=== PATIENT | male | born 2000 | race Caucasian/White ===

== ENCOUNTER 2022-03-15 15:00 | Emergency (ER) | payer SELFPAY ==
[2022-03-15 15:22] LABS: Urine Blood Negative (Negative); Urine Glucose Negative (Negative); Urine Protein Negative (Negative); Urine pH 7.5 (5.0-7.0)
[2022-03-15 15:44] LABS: Absolute Lymphocytes (CBC) 0.5 K/uL (0.7-4.9); Hematocrit 41.3 % (39.6-49.0); Lymphocytes % 8.1 % (15.3-44.8); MCV 82.1 fL (80-100); MPV 8.3 fL (7.6-11.3); RBC Red Blood Cell Count 5.03 M/uL (4.33-5.43)
--- NOTE | 2022-03-15 15:57 | RAD REPORT ---
EXAM DESCRIPTION: CTAbdomen Pelvis W Contrast - 03/15/2022 3:46 pm CLINICAL HISTORY: Abdominal pain. N/V COMPARISON: No comparisons TECHNIQUE: Biphasic CT imaging of the abdomen and pelvis was performed with 100 ml non-ionic IV cont rast. All CT scans are performed using dose optimization technique as appropriate and may include automated exposure control or mA/KV adjustment according to patient size. FINDINGS: The lung bases are clear. The liver, spleen, pancreas, adrenal glands and kidneys are within normal limits. No bowel obstruction, free air, free fluid or abscess. Several appendicolith are present normal size d appendix. No evidence of significant lymphadenopathy. No suspicious bony findings. IMPRESSION: No acute intra-abdominal or pelvic finding. Several appendicolith are present in a normal sized appendix.
[2022-03-15 16:03] LABS: Albumin 4.4 g/dL (3.4-5.0); Bilirubin Total 0.4 mg/dL (0.2-1.0); Potassium 3.5 mmol/L (3.5-5.1); Protein, Total 8.2 g/dL (6.4-8.2)
[2022-03-15] MEDS ORDERED: FAMOTIDINE 20 MG/2 ML VIAL IV ONE (16:18)
[2022-03-15] MEDS ORDERED: ONDANSETRON 4 MG/2 ML VIAL ONE (16:18)
[2022-03-15] MEDS ORDERED: NA CHLORIDE 0.9% 1,000 ML ONE ×2 (16:18→17:42)
[2022-03-15] MEDS ORDERED: MORPHINE 2 MG/ML SYR ONE (16:18)
[2022-03-15 16:47] LABS: SARS-COV-2 RT PCR POSITIVE (NEGATIVE)
[2022-03-15] MEDS ORDERED: KETOROLAC 30 MG/ML INJ ONE (17:42)
--- NOTE | 2022-03-15 18:08 | EDPHYS ---
Physician Documentation [facility] Name: Trey Christian Age: 21 yrs Sex: Male : 2000 Arrival Date: 03/15/2022 Time: 15:03 Bed 19 Private MD: ED Physician Morteza Marino HPI: 03/15 15:20 This 21 yrs old Male presents to ER via Ambulatory with complaints of Abdominal Pain, cp Flank Pain, Vomiting. 15:20 The patient presents with abdominal pain. Associated signs and symptoms: Pertinent cp positives: nausea and vomiting. 15:20 Onset: The symptoms/episode began/occurred this morning. cp 15:20 The symptoms do not radiate. Severity of pain: in the emergency department the pain is cp unchanged despite home interventions. Historical: - Allergies: 15:09 No Known Drug Allergies; ll1 - PMHx: 15:09 None; ll1 - PSHx: 15:09 None; ll1 - Immunization history:: Client reports having NOT received the Covid vaccine. - Social history:: Smoking status: Patient reports the use of cigarette tobacco products, smokes one-half pack cigarettes per day. ROS: 15:25 Constitutional: Positive for poor PO intake, Negative for body aches, chills, fever. cp 15:25 Eyes: Negative for injury, pain, redness, and discharge. cp 15:25 ENT: Negative for drainage from ear(s), ear pain, sore throat, difficulty swallowing, difficulty handling secretions. 15:25 Cardiovascular: Negative for chest pain, palpitations. 15:25 Respiratory: Negative for cough, shortness of breath, wheezing. 15:25 Abdomen/GI: Positive for abdominal pain, nausea and vomiting, anorexia, Negative for diarrhea, constipation, hematemesis. 15:25 Back: Positive for flank pain, low back pain, Negative for injury or acute deformity, decreased range of motion. 15:25 : Negative for urinary symptoms, testicular pain 15:25 Neuro: Negative for altered mental status, dizziness, headache, syncope, weakness. 15:25 All other systems are negative. Exam: 15:30 Constitutional: The patient appears in no acute distress, alert, awake, non-toxic, well cp developed, well nourished, uncomfortable. 15:30 Head/Face: Normocephalic, atraumatic. cp 15:30 Eyes: Periorbital structures: appear normal, Conjunctiva: normal, Sclera: no appreciated abnormality, Lids and lashes: appear normal, bilaterally. 15:30 ENT: External ear(s): are unremarkable, Nose: is normal, Mouth: Lips: moist, Oral mucosa: pink and intact, moist, Posterior pharynx: Airway: no evidence of obstruction, patent, Tonsils: no enlargement, no erythema, no exudate, erythema, is not appreciated, exudate, is not appreciated. 15:30 Neck: ROM/movement: is normal, is supple, without pain, no range of motions limitations. 15:30 Chest/axilla: Inspection: normal. 15:30 Cardiovascular: Rate: tachycardic, Rhythm: regular, Edema: is not appreciated. 15:30 Respiratory: the patient does not display signs of respiratory distress, Respirations: normal, no use of accessory muscles, no retractions, labored breathing, is not present, Breath sounds: are clear throughout, no decreased breath sounds, no stridor, no wheezing. 15:30 Abdomen/GI: Inspection: abdomen appears normal, Bowel sounds: active, all quadrants, Palpation: soft, in all quadrants, moderate abdominal tenderness, in all quadrants, rebound tenderness, is not appreciated, involuntary guarding, is not appreciated. 15:30 Back: pain, that is moderate, of the lumbar area, right mid back and right low back, ROM is normal. 15:30 Skin: cellulitis, is not appreciated, no rash present. 15:30 Neuro: Orientation: to person, place \T\ time. Mentation: is normal, Motor: moves all fours, strength is normal, Sensation: is normal. Vital Signs: 15:09 BP 137 / 69; Pulse 114; Resp 18; Temp 97.0; Pulse Ox 95% on R/A; Height 5 ft. 8 in. ll1 (172.72 cm); Pain 7/10; 15:30 BP 125 / 75; Pulse 117; Resp 20; Pulse Ox 96% on R/A; Pain 10/10; db 16:22 BP 111 / 70; Pulse 123; Resp 20; Temp 99.5(O); Pulse Ox 97% on R/A; db 16:54 Pain 5/10; db 18:12 BP 113 / 73; Pulse 85; Resp 18; Temp 98; Pulse Ox 98% on R/A; Pain 5/10; db 18:18 BP 113 / 73; Pulse 105; Resp 18; Pulse Ox 99% on R/A; db MDM: 15:15 Patient medically screened. 18:05 Data reviewed: vital signs, nurses notes, lab test result(s), radiologic studies, CT cp scan. 18:05 Counseling: I had a detailed discussion with the patient and/or guardian regarding: the cp historical points, exam findings, and any diagnostic results supporting the discharge/admit diagnosis, lab results, radiology results, to return to the emergency department if symptoms worsen or persist or if there are any questions or concerns that arise at home. Response to treatment: the patient's symptoms have markedly improved after treatment, patient is well hydrated. ED course: VSS. Nausea and pain markedly improved, vomiting resolved. Will discharge to home for continued monitoring. 03/15 15:19 Order name: CBC with Diff; Complete Time: 16:01 1 03/15 16:02 Interpretation: Normal except: CHRIST% 79.8; LYM% 8.1; LYMA 0.5. 03/15 15:19 Order name: CMP; Complete Time: 16:25 [facility] 03/15 16:26 Interpretation: Normal except: GLUC 119; GLOB 3.8. 03/15 15:19 Order name: Lipase; Complete Time: 16:25 [facility] 03/15 15:19 Order name: COVID-19/FLU A+B; Complete Time: 16:52 [facility] 03/15 16:52 Interpretation: Normal except: SARSCOV2 RT PCR POSITIVE. 03/15 15:22 Order name: Urine Dipstick-Ancillary; Complete Time: 15:23 [facility] 03/15 15:23 Interpretation: Normal except: UPH 7.5. 03/15 15:23 Order name: Magnesium 03/15 15:23 Order name: CT Abd/Pelvis - IV Contrast Only; Complete Time: 16:01 03/15 16:02 Interpretation: Report reviewed. 03/15 15:19 Order name: IV Saline Lock; Complete Time: 15:19 1 03/15 15:19 Order name: Labs collected and sent; Complete Time: 15:19 1 03/15 15:19 Order name: Urine Dipstick-Ancillary (obtain specimen); Complete Time: 15:19 ll1 03/15 16:26 Order name: PO challenge; Complete Time: 18:09 cp Administered Medications: 16:20 Drug: morphine 2 mg Route: IVP; Infused Over: 4 mins; Site: left antecubital; db 18:17 Follow up: Response: No adverse reaction db 16:25 Drug: Zofran (Ondansetron) 4 mg Route: IVP; Site: left antecubital; db 18:17 Follow up: Response: No adverse reaction db 16:25 Drug: Pepcid (famotidine) 20 mg Route: IVP; Site: left antecubital; db 18:17 Follow up: Response: No adverse reaction db 16:25 Drug: NS 0.9% 1000 ml Route: IV; Rate: 1 bolus; Site: left antecubital; db 17:30 Follow up: Response: No adverse reaction; IV Status: Completed infusion; IV Intake: db 1000ml 16:30 Drug: morphine 2 mg Route: IVP; Infused Over: 4 mins; Site: left antecubital; db 18:17 Follow up: Response: No adverse reaction db 17:30 Drug: NS 0.9% 1000 ml Route: IV; Rate: 1 bolus; Site: left antecubital; db 18:34 Follow up: Response: No adverse reaction; IV Status: Completed infusion; IV Intake: db 1000ml 17:30 Drug: Ketorolac 30 mg Route: IVP; Site: left antecubital; db 18:16 Follow up: Response: No adverse reaction; Pain is decreased db Disposition: 16:49 Co-signature as Attending Physician, Morteza COLEMAN was immediately available on-site ms3 in the Emergency Department for consultation in the care of the patient. Disposition Summary: 03/15/22 18:07 Discharge Ordered Location: Home cp Problem: new cp Symptoms: have improved cp Condition: Stable cp Diagnosis - Nausea with vomiting, unspecified cp - SARS-associated coronavirus as the cause of diseases classified elsewhere cp - Low back pain cp - Abdominal pain, unspecified cp Followup: cp - With: Private Physician - When: 2 - 3 days - Reason: Worsening of condition Discharge Instructions: - Discharge Summary Sheet cp - Abdominal Pain, Adult cp - Acute Back Pain, Adult cp - Nausea and Vomiting, Adult cp - COVID-19 cp - Things to Know about the COVID-19 Pandemic - [facility] cp - 10 Things You Can Do to Manage Your COVID-19 Symptoms at Home - [facility] cp - COVID-19: Quarantine vs. Isolation - [facility] cp - Prevent the Spread of COVID-19 if You Are Sick - [facility] cp Forms: - Medication Reconciliation Form cp - Thank You Letter cp - Antibiotic Education cp - Prescription Opioid Use cp Prescriptions: - Zofran 4 mg Oral Tablet - take 1 tablet by ORAL route every 12 hours As needed; 20 tablet; Refills: 0, cp Product Selection Permitted - Diclofenac Sodium 75 mg Oral Tablet Sustained Release - take 1 tablet by ORAL route 2 times per day; 30 tablet; Refills: 0, Product cp Selection Permitted Signatures: Dispatcher [employer] EDMS Fabian Bliss PA PA cp John Fierro RN RN ll1 Morteza Marino DO DO ms3 Karie Norris RN RN db Corrections: (The following items were deleted from the chart) 15:09 15:09 Social history: Smoking status: Patient denies any tobacco usage or history of. ll1 ll1 16:26 16:26 Normal except: GLUC 119. cp cp
--- NOTE | 2022-03-15 18:08 | ER ---
Nurse's Notes [facility] Name: Trey Christian Age: 21 yrs Sex: Male : 2000 Arrival Date: 03/15/2022 Time: 15:03 Bed 19 Private MD: Diagnosis: Nausea with vomiting, unspecified;SARS-associated coronavirus as the cause of diseases classified elsewhere;Low back pain;Abdominal pain, unspecified Presentation: 03/15 15:09 Chief complaint: Patient states: R flank and R lower back pain for 1 days. + N/V and ll1 pale. Coronavirus screen: Vaccine status: Patient reports being unvaccinated. Client denies travel out of the [place] in the last 14 days. At this time, the client does not indicate any symptoms associated with coronavirus-19. Ebola Screen: Patient denies travel to an Ebola-affected area in the 21 days before illness onset. Initial Sepsis Screen: Does the patient meet any 2 criteria? HR > 90 bpm. No. Patient's initial sepsis screen is negative. Does the patient have a suspected source of infection? Yes: Acute abdominal pain. Risk Assessment: Do you want to hurt yourself or someone else? Patient reports no desire to harm self or others. Onset of symptoms was March 15, 2022. 15:09 Method Of Arrival: Ambulatory ll1 15:09 Acuity: AMOR 3 ll1 Triage Assessment: 15:12 General: Appears uncomfortable, Behavior is calm, cooperative, appropriate for age. ll1 Pain: Complains of pain in back Quality of pain is described as aching. Neuro: No deficits noted. Cardiovascular: No deficits noted. Respiratory: No deficits noted. GI: Reports nausea, vomiting. Historical: - Allergies: 15:09 No Known Drug Allergies; ll1 - PMHx: 15:09 None; ll1 - PSHx: 15:09 None; ll1 - Immunization history:: Client reports having NOT received the Covid vaccine. - Social history:: Smoking status: Patient reports the use of cigarette tobacco products, smokes one-half pack cigarettes per day. Screenin:22 [facility] ED Fall Risk Assessment (Adult) History of falling in the last 3 months, db including since admission No falls in past 3 months (0 pts) Confusion or Disorientation No (0 pts) Intoxicated or Sedated No (0 pts) Impaired Gait No (0 pts) Mobility Assist Device Used No (0 pt) Altered Elimination No (0 pt) Score/Fall Risk Level 0 - 2 = Low Risk Oriented to surroundings, Maintained a safe environment. Abuse screen: Denies threats or abuse. Denies injuries from another. Nutritional screening: No deficits noted. Tuberculosis screening: No symptoms or risk factors identified. Assessment: 16:42 Reassessment: Patient appears in no apparent distress at this time. Reassessment: db Patient appears in no apparent distress at this time. Patient and/or family updated on plan of care and expected duration. Pain level reassessed. Patient is alert, oriented x 3, equal unlabored respirations, skin warm/dry/pink. right flank pain feels like kidney stone pain. with nausea. General: Appears distressed, uncomfortable, Behavior is calm, cooperative, appropriate for age. Pain: Complains of pain in right flank pain. Neuro: No deficits noted. Level of Consciousness is awake, alert, obeys commands. Cardiovascular: No deficits noted. Respiratory: No deficits noted. Airway Respiratory effort is even, unlabored, Respiratory pattern is regular, symmetrical. GI: No deficits noted. No signs and/or symptoms were reported involving the gastrointestinal system. Bowel sounds present X 4 quads. Abd is soft and non tender. : No deficits noted. No signs and/or symptoms were reported regarding the genitourinary system. EENT: No deficits noted. 16:54 Reassessment: Patient appears in no apparent distress at this time. Patient and/or db family updated on plan of care and expected duration. Pain level reassessed. Patient is alert, oriented x 3, equal unlabored respirations, skin warm/dry/pink. Patient states feeling better. Patient states symptoms have improved. 17:30 Reassessment: Patient appears in no apparent distress at this time. No changes from db previously documented assessment. Patient and/or family updated on plan of care and expected duration. Pain level reassessed. Patient is alert, oriented x 3, equal unlabored respirations, skin warm/dry/pink. PATIENT PROVIDED WATER AND GATORADE FOR PO CHALLENGE. 18:33 Reassessment: Patient appears in no apparent distress at this time. No changes from db previously documented assessment. Patient and/or family updated on plan of care and expected duration. Pain level reassessed. Patient is alert, oriented x 3, equal unlabored respirations, skin warm/dry/pink. STATES IS FEELING BETTER. TOLERATED PO CHALLENGE Patient states feeling better. Patient states symptoms have improved. Vital Signs: 15:09 BP 137 / 69; Pulse 114; Resp 18; Temp 97.0; Pulse Ox 95% on R/A; Height 5 ft. 8 in. ll1 (172.72 cm); Pain 7/10; 15:30 BP 125 / 75; Pulse 117; Resp 20; Pulse Ox 96% on R/A; Pain 10/10; db 16:22 BP 111 / 70; Pulse 123; Resp 20; Temp 99.5(O); Pulse Ox 97% on R/A; db 16:54 Pain 5/10; db 18:12 BP 113 / 73; Pulse 85; Resp 18; Temp 98; Pulse Ox 98% on R/A; Pain 5/10; db 18:18 BP 113 / 73; Pulse 105; Resp 18; Pulse Ox 99% on R/A; db Vitals: 18:18 Cardiac Rhythm Assessment Regular Sinus tach. db ED Course: 15:03 Patient arrived in ED. rg4 15:09 Fabian Bliss PA is PHCP. cp 15:09 Morteza Marino DO is Attending Physician. cp 15:12 Triage completed. ll1 15:12 Arm band placed on Patient placed in an exam room, on a stretcher. ll1 15:29 COVID-19/FLU A+B Sent. kj1 15:30 Inserted saline lock: 20 gauge in left antecubital area, using aseptic technique. Blood db collected. 15:48 CT Abd/Pelvis - IV Contrast Only In Process Unspecified. EDMS 16:09 Karie Norris, RN is Primary Nurse. db 16:22 Patient has correct armband on for positive identification. Bed in low position. Call db light in reach. Side rails up X 1. Client placed on continuous cardiac and pulse oximetry monitoring. NIBP monitoring applied. 16:22 No provider procedures requiring assistance completed. db 16:55 Magnesium Sent. bc6 18:33 IV discontinued, intact, bleeding controlled, No redness/swelling at site. db Administered Medications: 16:20 Drug: morphine 2 mg Route: IVP; Infused Over: 4 mins; Site: left antecubital; db 18:17 Follow up: Response: No adverse reaction db 16:25 Drug: Zofran (Ondansetron) 4 mg Route: IVP; Site: left antecubital; db 18:17 Follow up: Response: No adverse reaction db 16:25 Drug: Pepcid (famotidine) 20 mg Route: IVP; Site: left antecubital; db 18:17 Follow up: Response: No adverse reaction db 16:25 Drug: NS 0.9% 1000 ml Route: IV; Rate: 1 bolus; Site: left antecubital; db 17:30 Follow up: Response: No adverse reaction; IV Status: Completed infusion; IV Intake: db 1000ml 16:30 Drug: morphine 2 mg Route: IVP; Infused Over: 4 mins; Site: left antecubital; db 18:17 Follow up: Response: No adverse reaction db 17:30 Drug: NS 0.9% 1000 ml Route: IV; Rate: 1 bolus; Site: left antecubital; db 18:34 Follow up: Response: No adverse reaction; IV Status: Completed infusion; IV Intake: db 1000ml 17:30 Drug: Ketorolac 30 mg Route: IVP; Site: left antecubital; db 18:16 Follow up: Response: No adverse reaction; Pain is decreased db Medication: 16:22 VIS not applicable for this client. db Intake: 17:30 IV: 1000ml; Total: 1000ml. db 18:34 IV: 1000ml; Total: 2000ml. db Outcome: 18:07 Discharge ordered by MD. cp 18:33 Discharged to home ambulatory, with family. db 18:33 Condition: stable 18:33 Discharge instructions given to patient, Instructed on discharge instructions, Demonstrated understanding of instructions, Prescriptions given X 2. 18:34 Patient left the ED. db Signatures: Dispatcher [employer] EDMS Fabian Bliss PA PA cp Garcia, Rubi rg4 Maria T Villarreal kj1 John Fierro RN RN ll1 Karie Norris RN RN db Marita Calderón bc6 Corrections: (The following items were deleted from the chart) 15:09 15:09 Social history: Smoking status: Patient denies any tobacco usage or history of. ll1 ll1 15:12 15:09 Pulse 114bpm; Resp 18bpm; Pulse Ox 95% RA; Temp 97.0F; Pain 7/10; ll1 ll1
[2022-03-15 19:18] VITALS: BP 113/73; TEMP 98
[2022-03-15 19:20] VITALS: O2SAT 99
== END 2022-03-15 18:34 | disposition home or self-care (01) ==
LOC: ER 15:00
DX: U07.1 COVID-19 (principal); M54.50 Low back pain, unspecified; R10.9 Unspecified abdominal pain
CPT/HCPCS: 0240U; 36415; 74177; 80053; 81003; 83690; 83735; 85025; 96361; 96374; 96375; 99284; J2270; J2405; J7030; Q9967

== ENCOUNTER 2022-05-22 10:25 | Emergency (ER) | payer SELFPAY ==
[2022-05-22 10:52] LABS: Urine Blood Trace-intact (Negative); Urine Glucose Negative (Negative); Urine Protein Negative (Negative); Urine Specific Gravity <=1.005 (1.005-1.030); Urine pH 5.5 (5.0-7.0)
[2022-05-22] MEDS ORDERED: KETOROLAC 30 MG/ML INJ ONE (10:57)
[2022-05-22 11:01] LABS: Urine Bacteria <20 /HPF (<20); Urine RBC <5 /HPF (None Seen); Urine WBC Clump Rare /HPF (None Seen)
--- NOTE | 2022-05-22 11:12 | ER ---
Nurse's Notes [facility] Name: Trey Christian Age: 22 yrs Sex: Male : 2000 Arrival Date: 05/22/2022 Time: 10:31 Bed 12 Private MD: Diagnosis: UTI/ Urinary tract infection, site not specified Presentation: 05/22 10:37 Chief complaint: Chief complaint: Penile pain and pain with urination x 3 days. hb Coronavirus screen: At this time, the client does not indicate any symptoms associated with coronavirus-19. Ebola Screen: No symptoms or risks identified at this time. Initial Sepsis Screen: Does the patient meet any 2 criteria? No. Patient's initial sepsis screen is negative. Does the patient have a suspected source of infection? No. Patient's initial sepsis screen is negative. Risk Assessment: Do you want to hurt yourself or someone else? Patient reports no desire to harm self or others. Onset of symptoms was May 20, 2022. 10:37 Method Of Arrival: Ambulatory hb 10:38 Acuity: AMOR 4 hb Historical: - Allergies: 10:38 No Known Allergies; hb - Immunization history:: Adult Immunizations up to date. - Social history:: Smoking status: Patient denies any tobacco usage or history of. Screenin:59 [facility] ED Fall Risk Assessment (Adult) History of falling in the last 3 months, ss including since admission No falls in past 3 months (0 pts). Abuse screen: Denies threats or abuse. Denies injuries from another. Nutritional screening: No deficits noted. Tuberculosis screening: Never had TB. Assessment: 10:59 General: Appears in no apparent distress. comfortable, Behavior is calm, cooperative. ss Neuro: Level of Consciousness is awake, alert, obeys commands. Respiratory: Airway is patent Respiratory effort is even, unlabored, Respiratory pattern is regular, symmetrical. : Reports burning with urination, x 3 days. Derm: Skin is intact, is healthy with good turgor, Skin is Skin is pink, warm \T\ dry. normal. Musculoskeletal: Circulation, motion, and sensation intact. Range of motion: intact in all extremities, Swelling absent. Vital Signs: 10:37 BP 153 / 89; Pulse 103; Resp 16; Temp 98.2; Pulse Ox 97% on R/A; Weight 81.65 kg; hb Height 5 ft. 7 in. ; 10:37 Body Mass Index 28.19 (81.65 kg, 170.18 cm) ED Course: 10:31 Patient arrived in ED. am2 10:32 Refugio Mata MD is Attending Physician. bs3 10:37 Arm band placed on right wrist. hb 10:39 Triage completed. hb 10:51 Bernie Conde, RN is Primary Nurse. ss 10:51 GC (Nuno/Chl) Probe URINE Sent. ss 10:51 Urine Microscopic Only Sent. ss 10:59 Patient has correct armband on for positive identification. ss Administered Medications: 10:57 Drug: Ketorolac IM 30 mg Route: IM; Site: right deltoid; ss Medication: 10:59 VIS not applicable for this client. Outcome: 11:12 Discharge ordered by . bs3 Signatures: Bernie Conde, ERINN RN Margie Grande RN RN [facility] Viky am2 Refugio Mata MD MD bs3 Corrections: (The following items were deleted from the chart) 10:46 10:37 BP 153 / 89; Pulse 103bpm; Resp 16bpm; Pulse Ox 97% RA; Temp 98.2F; hb hb
--- NOTE | 2022-05-22 11:12 | EDPHYS ---
Physician Documentation [facility] Name: Trey Christian Age: 22 yrs Sex: Male : 2000 Arrival Date: 05/22/2022 Time: 10:31 Bed 12 Private MD: ED Physician Refugio Mata HPI: 05/22 10:46 This 22 yrs old Male presents to ER via Ambulatory with complaints of Penile bs3 Pain, Pain With Urination. 10:46 No significant past medical history he notes that his pain started 3 days ago he has bs3 increased urinary frequency and pain with urination he denies fevers or chills any back pain. He denies any sexual activity but notes that he was almost sexually active last week he denies any discharge she denies any lesions on his penis he denies any testicular pain or anything else bothering him this is never happened before. Historical: - Allergies: 10:38 No Known Allergies; hb - Immunization history:: Adult Immunizations up to date. - Social history:: Smoking status: Patient denies any tobacco usage or history of. ROS: 10:46 Constitutional: Negative for fever, chills bs3 10:46 All other systems are negative. Exam: 10:46 Constitutional: This is a well developed, well nourished patient who is awake, alert, bs3 and in no acute distress. Head/Face: Normocephalic, atraumatic. ENT: mmm, no posterior phyarngeal erythema Chest/axilla: Normal chest wall appearance and motion. Nontender with no deformity. No lesions are appreciated. Cardiovascular: Regular rate and rhythm with a normal S1 and S2. symmetric pulses in upper extremities Respiratory: Lungs have equal breath sounds bilaterally, clear to auscultation, no respiratory distress Abdomen/GI: Soft, non-tender, no rebound or guarding Male : Normal genitalia with no discharge or lesions., pt points to the ventral aspect of the penis for where his pain is Skin: Warm, dry with normal turgor. Normal color with no rashes, no lesions, and no evidence of cellulitis. MS/ Extremity: Pulses equal, no cyanosis. Neurovascular intact. Full, normal range of motion. Neuro: Awake and alert, GCS 15, oriented to person, place, time, and situation. Cranial nerves II-XII grossly intact. Motor strength 5/5 in all extremities. Sensory grossly intact. Vital Signs: 10:37 BP 153 / 89; Pulse 103; Resp 16; Temp 98.2; Pulse Ox 97% on R/A; Weight 81.65 kg; hb Height 5 ft. 7 in. ; 10:37 Body Mass Index 28.19 (81.65 kg, 170.18 cm) hb MDM: 10:32 Patient medically screened. bs3 10:46 Differential diagnosis: Possible UTI possible STI although patient denies risk factors bs3 his spot urine showed 2+ leuk esterase will treat for UTI he has increased urinary frequency will treat for possible ureteral spasm return precautions given. Data reviewed: vital signs, nurses notes. 11:11 ED course: UA consistent with UTI patient advised to follow-up with regarding his blood bs3 pressure patient denies any possible sexually transmitted infection discussed treatment for this which he did not want. 05/22 10:33 Order name: Urine Dipstick-Ancillary (obtain specimen); Complete Time: 10:51 bs3 05/22 10:42 Order name: Urine Microscopic Only; Complete Time: 11:09 bs3 05/22 10:45 Order name: GC (Nuno/Chl) Probe URINE EDMS 05/22 10:52 Order name: Urine Dipstick-Ancillary; Complete Time: 11:09 EDMS 05/22 11:06 Order name: Urine Culture EDMS Administered Medications: 10:57 Drug: Ketorolac IM 30 mg Route: IM; Site: right deltoid; Disposition Summary: 05/22/22 11:12 Discharge Ordered Location: Home bs3 Problem: new bs3 Symptoms: have improved bs3 Condition: Stable bs3 Diagnosis - UTI/ Urinary tract infection, site not specified bs3 Followup: bs3 - With: Private Physician - When: 5 - 6 days - Reason: Re-evaluation by your physician Forms: - Medication Reconciliation Form bs3 - Thank You Letter bs3 - Antibiotic Education bs3 - Prescription Opioid Use bs3 Signatures: Dispatcher [employer] EDMS Bernie Conde RN RN Margie Grande RN RN Refugio Mata MD MD bs3 Corrections: (The following items were deleted from the chart) 10:46 10:34 GC (Gonorr/Clamydia) Probe+R.LAB.BRZ ordered. EDMS EDMS
[2022-05-22 11:39] VITALS: BP 153/89; TEMP 98.2; O2SAT 97
== END 2022-05-22 11:18 | disposition home or self-care (01) ==
LOC: ER 10:25
DX: N39.0 Urinary tract infection, site not specified (principal)
CPT/HCPCS: 81003; 81015; 87086; 87088; 87490; 87590; 96372; 99283

== ENCOUNTER 2022-06-04 11:42 | Observation (INO) | payer SELFPAY ==
[2022-06-04 12:44] LABS: Absolute Lymphocytes (CBC) 1.8 K/uL (0.7-4.9); Hematocrit 36.9 % (39.6-49.0); Lymphocytes % 14.9 % (15.3-44.8); MCV 80.7 fL (80-100); MPV 7.5 fL (7.6-11.3); RBC Red Blood Cell Count 4.57 M/uL (4.33-5.43)
[2022-06-04 12:50] LABS: Albumin 3.7 g/dL (3.4-5.0); Bilirubin Total 0.5 mg/dL (0.2-1.0); Potassium 3.7 mEq/L (3.5-5.1); Protein, Total 8.9 g/dL (6.4-8.2)
[2022-06-04] MEDS ORDERED: NA CHLORIDE 0.9% 1,000 ML ONE (12:50)
[2022-06-04] MEDS ORDERED: ONDANSETRON 4 MG/2 ML VIAL ONE ×2 (12:50→15:41)
[2022-06-04] MEDS ORDERED: MORPHINE 4 MG/ML SYR ONE ×2 (12:50→15:41)
--- NOTE | 2022-06-04 14:05 | RAD REPORT ---
EXAM DESCRIPTION: CTAbdomen Pelvis W Contrast - 06/04/2022 1:47 pm CLINICAL HISTORY: ABD PAIN COMPARISON: Abdomen Pelvis W Contrast dated 03/15/2022 TECHNIQUE: CT of the abdomen and pelvis was performed. All CT scans are performed using dose optimization technique as appropriate and may include automated exposure control or mA/KV adjustment according to patient size. FINDINGS: Lower chest: 10 mm subpleural nodule at the right hemidiaphragm is almost certainly benign in a patient in this age group. There is a second smaller nodule more peripheral, also likely benign . These may represent subpleural lymph nodes . Liver: No acute abnormality or suspicious lesions. Biliary: No biliary ductal dilatation. Stomach: No significant focal abnormality. Duodenum: No significant focal abnormality. Pancreas: No significant abnormality. Spleen: No significant abnormality. Adrenal: No suspicious lesions. Kidney/ureter: No hydronephrosis. No renal calculi. Retroperitoneum: No retroperitoneal adenopathy. Vascular: No aneurysm. Bowel: No significant focal abnormality. Peritoneum: Retrocecal acute appendicitis without perforation. No bowel obstruction. Bladder: Grossly unremarkable. Reproductive: No adnexal masses. Bones: No acute fracture. Other: n/a IMPRESSION: Nonperforated acute appendicitis. No abscess.
[2022-06-04] MEDS ORDERED: ONDANSETRON 4 MG/2 ML VIAL IV PRN ×2 (14:59→18:22)
[2022-06-04] MEDS ORDERED: MORPHINE 4 MG/ML SYR IV PRN (14:59)
--- NOTE | 2022-06-04 15:03 | ER ---
Nurse's Notes [facility] Name: Trey Christian Age: 22 yrs Sex: Male : 2000 Arrival Date: 06/04/2022 Time: 11:45 Bed 9 Private MD: Diagnosis: Unspecified acute appendicitis;Leukocytosis;Lower abdominal pain, unspecified Presentation: 06/04 12:05 Chief complaint: Patient states: RLQ pain x 1 week ago. Pt appears uncomfortable and aa5 pale during triage. 12:05 Coronavirus screen: At this time, the client does not indicate any symptoms associated aa5 with coronavirus-19. Ebola Screen: Patient denies travel to an Ebola-affected area in the 21 days before illness onset. Initial Sepsis Screen: Does the patient meet any 2 criteria? HR > 90 bpm. Does the patient have a suspected source of infection? No. Patient's initial sepsis screen is negative. Risk Assessment: Do you want to hurt yourself or someone else? Patient reports no desire to harm self or others. Onset of symptoms was May 2022. 12:05 Acuity: AMOR 2 aa5 12:05 Method Of Arrival: Ambulatory aa5 Historical: - Allergies: 12:16 No Known Allergies; aa5 - PMHx: 12:16 Kidney stone; aa5 - Immunization history:: Adult Immunizations unknown. - Social history:: Smoking status: Patient denies any tobacco usage or history of. Assessment: 15:30 Reassessment: Patient is alert, oriented x 3, equal unlabored respirations, skin aa5 warm/dry/pink. Pt vomited once, MD was notified. . 15:40 Reassessment: Patient is alert, oriented x 3, equal unlabored respirations, skin aa5 warm/dry/pink. Vital Signs: 12:05 BP 112 / 81; Pulse 101; Resp 20 S; Temp 97.7(O); Pulse Ox 99% on R/A; aa5 13:00 BP 132 / 84; Pulse 92; Resp 18; Pulse Ox 95% on R/A; Pain 7/10; aa5 14:00 BP 130 / 90; Pulse 83; Resp 18; Pulse Ox 95% on R/A; eh3 15:30 BP 128 / 91; Pulse 95; Resp 16 S; Pulse Ox 100% on R/A; aa5 13:00 Pain Scale: Adult aa5 ED Course: 11:45 Patient arrived in ED. rg4 11:49 Morteza Marino DO is Attending Physician. ms3 12:05 Arm band placed on. aa5 12:16 Triage completed. aa5 12:23 Initial lab(s) drawn, by me, sent to lab. Inserted saline lock: 20 gauge in right em1 antecubital area, using aseptic technique. Blood collected. 13:00 Elsie Boyd, ERINN is Primary Nurse. aa5 13:49 CT Abd/Pelvis - IV Contrast Only In Process Unspecified. EDMS 15:01 Ru Jordan MD is Hospitalizing Provider. ms3 15:52 No provider procedures requiring assistance completed. Patient admitted, IV remains in aa5 place. Administered Medications: 12:40 Drug: NS 0.9% IV 1000 ml Route: IV; Rate: 1 bolus; Site: right antecubital; aa5 15:40 Follow up: IV Status: Completed infusion; IV Intake: 1000ml aa5 12:40 Drug: Ondansetron IVP 4 mg Route: IVP; Site: right antecubital; aa5 13:30 Follow up: Response: No adverse reaction mb9 12:40 Drug: morphine IVP or IV 4 mg Route: IVP; Infused Over: 4 mins; Site: right antecubital;aa5 13:30 Follow up: Response: Pain is decreased mb9 15:33 CANCELLED (Duplicate Order): Ondansetron IVP 4 mg IVP once; over 2 minutes aa5 15:40 Drug: morphine IVP or IV 4 mg Route: IVP; Infused Over: 4 mins; Site: right antecubital;aa5 15:50 Follow up: Response: No adverse reaction aa5 15:40 Drug: Ondansetron IVP 4 mg Route: IVP; Site: right antecubital; aa5 15:50 Follow up: Response: No adverse reaction aa5 15:42 Drug: Piperacillin-Tazobactam IVPB 3.375 grams Route: IVPB; Infused Over: 60 mins; aa5 Site: right antecubital; 15:51 Follow up: Response: No adverse reaction aa5 15:51 Follow up: IV Status: Infusion continued upon admission aa5 Medication: 15:52 VIS not applicable for this client. aa5 Intake: 15:40 IV: 1000ml; Total: 1000ml. aa5 Outcome: 15:02 Decision to Hospitalize by Provider. ms3 15:52 Admitted to OR accompanied by nurse, via wheelchair, with chart, Report called to aaAurelia Kirkpatrick RN 15:52 Condition: stable 15:52 Instructed on the need for admit, Demonstrated understanding of instructions. 15:52 Patient left the ED. aa5 Signatures: Dispatcher [employer] EDMS German Carpio em1 Elsie Boyd, RN RN aa5 Bev Barton 4 Morteza Marino, DO DO ms3 Radha Ernst, RN RN eh3 Kavita, Kristine Seo, RN RN mb9 Corrections: (The following items were deleted from the chart) 12:57 12:29 Elsie Boyd, RN is Primary Nurse. aa5 aa5
--- NOTE | 2022-06-04 15:03 | EDPHYS ---
Physician Documentation [facility] Name: Trey Christian Age: 22 yrs Sex: Male : 2000 Arrival Date: 06/04/2022 Time: 11:45 Bed 9 Private MD: ED Physician Morteza Marino HPI: 06/04 15:02 This 22 yrs old Male presents to ER via Ambulatory with complaints of Abdominal Pain, ms3 Flank Pain. 15:02 22-year-old male with past medical history of kidney stones presents for right lower ms3 quadrant abdominal pain that began 1 week prior to arrival. Patient states the pain is 10/10 described as stabbing. Patient denies alleviating or inciting factors. Patient states he has not had pain like this in past. Patient states he developed nausea and vomiting this morning. Historical: - Allergies: 12:16 No Known Allergies; aa5 - PMHx: 12:16 Kidney stone; aa5 - Immunization history:: Adult Immunizations unknown. - Social history:: Smoking status: Patient denies any tobacco usage or history of. ROS: 15:02 Constitutional: Negative for fever, and chills. Neck: Negative for injury, pain, and ms3 swelling, Cardiovascular: Negative for chest pain, and palpitations. Respiratory: Negative for shortness of breath, cough, wheezing, and pleuritic chest pain. 15:02 Abdomen/GI: Positive for abdominal pain, nausea and vomiting. 15:02 All other systems are negative. Exam: 15:02 Constitutional: This is a well developed, well nourished patient who is awake, alert, ms3 and in no acute distress. Head/Face: Normocephalic, atraumatic. Chest/axilla: Normal chest wall appearance and motion. Nontender with no deformity. Cardiovascular: Regular rate and rhythm with a normal S1 and S2. No gallops, murmurs, or rubs. Normal PMI, no JVD. No pulse deficits. Respiratory: Lungs have equal breath sounds bilaterally, clear to auscultation and percussion. No rales, rhonchi or wheezes noted. No increased work of breathing, no retractions or nasal flaring. 15:02 Abdomen/GI: Inspection: abdomen appears normal, Bowel sounds: normal, in the right lower quadrant, Palpation: severe abdominal tenderness, in the right lower quadrant. Vital Signs: 12:05 BP 112 / 81; Pulse 101; Resp 20 S; Temp 97.7(O); Pulse Ox 99% on R/A; aa5 13:00 BP 132 / 84; Pulse 92; Resp 18; Pulse Ox 95% on R/A; Pain 7/10; aa5 14:00 BP 130 / 90; Pulse 83; Resp 18; Pulse Ox 95% on R/A; eh3 15:30 BP 128 / 91; Pulse 95; Resp 16 S; Pulse Ox 100% on R/A; aa5 13:00 Pain Scale: Adult aa5 MDM: 12:05 Patient medically screened. ms3 15:02 Differential diagnosis: Appendicitis vs epiploic appendagitis versus viral illness ms3 versus nephrolithiasis. Data reviewed: vital signs, nurses notes, lab test result(s), radiologic studies, CT scan, and as a result, I will admit patient. Consideration of Admission/Observation Patient was admitted/placed on observation. Management of patient was discussed with the following: Dr Ru Jordan. I considered the following discharge prescriptions or medication management in the emergency department Medications were administered in the Emergency Department. See MAR. Discussion of test interpretation with radiology: I had a discussion with radiology regarding a test interpretation. CT abd/ Pelvis positive for appendicitis . Counseling: I had a detailed discussion with the patient and/or guardian regarding: the historical points, exam findings, and any diagnostic results supporting the discharge/admit diagnosis, lab results, radiology results, the need for further work-up and treatment in the hospital. ED course: Discussed necessity for admission and surgery as patient's CT reveals acute uncomplicated appendicitis. Patient and his mother understand and agree with plan. All questions were answered. Morphine ordered for patient's pain. 06/04 12:05 Order name: CBC with Diff; Complete Time: 13:15 ms3 06/04 12:05 Order name: CMP; Complete Time: 13:15 ms3 06/04 12:05 Order name: Lipase; Complete Time: 13:15 ms3 06/04 15:02 Order name: Basic Metabolic Panel EDMS 06/04 15:02 Order name: Basic Metabolic Panel EDMS 06/04 15:02 Order name: CBC with Automated Diff EDMS 06/04 15:02 Order name: CBC with Automated Diff EDMS 06/04 12:05 Order name: CT Abd/Pelvis - IV Contrast Only; Complete Time: 14:52 ms3 06/04 15:02 Order name: NPO EDMS 06/04 12:05 Order name: IV Saline Lock; Complete Time: 12:23 ms3 06/04 12:05 Order name: Labs collected and sent; Complete Time: 12:23 ms3 Administered Medications: 12:40 Drug: NS 0.9% IV 1000 ml Route: IV; Rate: 1 bolus; Site: right antecubital; aa5 15:40 Follow up: IV Status: Completed infusion; IV Intake: 1000ml aa5 12:40 Drug: Ondansetron IVP 4 mg Route: IVP; Site: right antecubital; aa5 13:30 Follow up: Response: No adverse reaction mb9 12:40 Drug: morphine IVP or IV 4 mg Route: IVP; Infused Over: 4 mins; Site: right antecubital;aa5 13:30 Follow up: Response: Pain is decreased mb9 15:33 CANCELLED (Duplicate Order): Ondansetron IVP 4 mg IVP once; over 2 minutes aa5 15:40 Drug: morphine IVP or IV 4 mg Route: IVP; Infused Over: 4 mins; Site: right antecubital;aa5 15:50 Follow up: Response: No adverse reaction aa5 15:40 Drug: Ondansetron IVP 4 mg Route: IVP; Site: right antecubital; aa5 15:50 Follow up: Response: No adverse reaction aa5 15:42 Drug: Piperacillin-Tazobactam IVPB 3.375 grams Route: IVPB; Infused Over: 60 mins; aa5 Site: right antecubital; 15:51 Follow up: Response: No adverse reaction aa5 15:51 Follow up: IV Status: Infusion continued upon admission aa5 Disposition Summary: 06/04/22 15:02 Hospitalization Ordered Hospitalization Status: Observation ms3 Provider: Ru Jodran ms3 Location: Telemetry/MedSurg (observation) ms3 Condition: Stable ms3 Problem: new ms3 Symptoms: are unchanged ms3 Bed/Room Type: Standard ms3 Room Assignment: 214(06/04/22 15:42) dw Diagnosis - Unspecified acute appendicitis ms3 - Leukocytosis ms3 - Lower abdominal pain, unspecified ms3 Forms: - Medication Reconciliation Form ms3 - SBAR form ms3 Signatures: Dispatcher [employer] EDJaylene Dimas RN RN dw Elsie Boyd RN RN aa5 Morteza Marino DO DO ms3 Kristine Walls RN mb9 Corrections: (The following items were deleted from the chart) 15:33 15:33 Ondansetron IVP 4 mg IVP once; over 2 minutes ordered. ms3 aa5 15:42 15:02 ms3 dw
[2022-06-04] MEDS ORDERED: NA CHLORIDE 0.9% 100 ML ONE (15:42)
[2022-06-04] MEDS ORDERED: PIPERACIL/TAZO 3.375 GM VIAL IV ONE ×2 (15:42→18:39)
[2022-06-04] MEDS ORDERED: BUPIVACAINE 0.5% PF 10 ML VIAL ONE (15:51)
[2022-06-04] MEDS ORDERED: Ringers Lactate 1,000 ML IV ONE (15:59)
--- NOTE | 2022-06-04 16:02 | P.HP ---
Date of Service: 06/04/22 Chief complaint: Abdominal pain History of present Illness: Patient is a 22-year-old gentleman who presents to the emergency room with 2-week history of lower abdominal pain localizing to the right lower quadrant yesterday associated with nausea. Patient denies vomiting, diarrhea, constipation, blood per rectum, dysuria or hematuria. Patient denies sore throat, runny nose, cough, headaches, dizziness, chest pain, fever or chills. Review of systems: Otherwise unremarkable Past medical history: Negative Past surgical history: Negative Allergies: None Social history: Patient denies use of alcohol or tobacco Family history: Noncontributory Vital signs: Stable, afebrile Awake alert oriented x3 Head and neck: No masses Chest: Clear Heart: S1-S2 Abdomen: Soft, nondistended, positive bowel sounds, right lower quadrant tenderness with rebound and positive Rovsing's sign Extremity: Neurovascular intact, nontender Neuro: Nonfocal Diagnostic data: CT consistent with retrocecal acute appendicitis, white count 12.2 Assessment: Acute appendicitis Plan/recommendation: Admit, n.p.o., IV fluids, IV antibiotics. To the OR for laparoscopic appendectomy possible open. Patient understands risk, benefits alternatives and agrees to procedure. CC:
[2022-06-04] MEDS: ONDANSETRON 4 MG/2 ML VIAL ONE ×2 (16:12→18:12)
[2022-06-04] MEDS: HYDROMORPHONE HCL 1 MG/ML INJ ONE ×3 (16:12→18:18)
[2022-06-04] MEDS: KETOROLAC 30 MG/ML INJ ONE ×2 (16:12→18:12)
[2022-06-04] MEDS ORDERED: SUCCINYLCHOLINE 20 MG/ML (10 ML) IV ONE (16:53)
[2022-06-04] MEDS ORDERED: MIDAZOLAM HCL 2 MG/2 ML INJ ONE (16:54)
[2022-06-04] MEDS ORDERED: propofoL 200 MG/20 ML VIAL IV ONE (16:54)
[2022-06-04] MEDS ORDERED: FENTANYL CITR 100 MCG/2 ML ONE ×2 (16:54→17:32)
[2022-06-04] MEDS ORDERED: ROCURONIUM 50 MG/5 ML VIAL IV ONE (16:54)
[2022-06-04] MEDS: PIPER TAZO 3.375 GM in NA CHLORIDE 0.9% 100 ML IV SCH (17:00)
[2022-06-04] MEDS ORDERED: GLYCOPYRROLATE 0.2 MG/ML SYR ONE (17:47)
[2022-06-04] MEDS ORDERED: NEOSTIGMINE 1 MG/ML -10 ML VIAL ONE (18:06)
[2022-06-04] MEDS ORDERED: HYDROMORPHONE HCL 1 MG/ML INJ IV PRN (18:22)
[2022-06-04] MEDS: D5 0.45 NS 1,000 ML IV SCH (18:43)
[2022-06-04 19:13] VITALS: O2SAT 94
[2022-06-04 23:47] VITALS: BMI 21.9
[2022-06-05] MEDS: PIPER TAZO 3.375 GM in NA CHLORIDE 0.9% 100 ML IV SCH (00:38)
[2022-06-05] MEDS: D5 0.45 NS 1,000 ML IV SCH (02:00)
[2022-06-05 03:49] LABS: Absolute Lymphocytes (CBC) 1.2 K/uL (0.7-4.9); Hematocrit 32.7 % (39.6-49.0); Lymphocytes % 9.8 % (15.3-44.8); MCV 81.4 fL (80-100); MPV 7.6 fL (7.6-11.3); RBC Red Blood Cell Count 4.01 M/uL (4.33-5.43)
--- NOTE | 2022-06-05 04:18 | OP ---
Date of Procedure: 06/04/2022 Surgeon: Ru Jordan MD Newspaper Library Manager: None. Preoperative Diagnosis: Acute appendicitis. Postoperative Diagnosis: Acute appendicitis. Procedure: Laparoscopic appendectomy. Estimated Blood Loss: Minimal. Specimen: Appendix. Finding: As above. Anesthesia: General. Complications: None. The patient tolerated procedure in stable condition and taken to recovery room in good general condition. Procedure In Detail: The patient was brought to the OR and placed in supine position. General anest hesia was begun. The patient was prepped and draped in usual sterile fashion. Marcaine 0.5% was inf iltrated locally. A 15-blade was used to make a 1 cm supraumbilical midline incision and subcutaneou s tissue divided. Fascia was identified and divided. #1 Vicryl stay suture was placed. Peritoneal cavity entered with blunt dissection. A 12 mm trocar was placed into the peritoneal cavity under dir ect vision. Pneumoperitoneum was established. Then two 5 mm trocars were placed under direct vision , one in the suprapubic region and the other in the left lower quadrant. Laparoscopy revealed acute appendicitis with dilatation, induration, and inflammation and injected blood vessels and early suppu ration. Base of the appendix and the mesoappendix were identified clearly and then Endo-DWIGHT stapling device was used to divide both structures. There was no evidence of bleeding on the staple line not ed. The appendix was retrieved through the umbilicus via an Endo Catch bag. Right lower quadrant wa s examined. There was no evidence of bleeding or bowel injury appreciated. Subsequently, all trocar s were removed under direct vision. Stay sutures were tied to each other to reapproximate the fascia l defect. Subcutaneous wounds were irrigated. Bleeding was controlled with cautery. 3-0 chromic wa s used to approximate subcutaneous tissue and kate used to close skin. Sterile dressing was appli ed. The patient was awakened and taken to recovery room in good general condition. /MODL Voice ID: [id number] Report ID: [id number]
[2022-06-05] MEDS: HYDROCODONE/APAP 7.5/325 MG TAB PO PRN ×2 (04:54→10:27)
[2022-06-05 07:24] VITALS: TEMP 97.2
[2022-06-05 08:41] VITALS: BP 122/71
[2022-06-05] MEDS ORDERED: INFLUENZA VACCINE (for 6+ mo) 0.5 ML DOSE IMVAC ONE (09:00)
--- NOTE | 2022-06-05 09:23 | DS ---
Date of Discharge: 06/05/2022 Admitting Diagnosis: Acute appendicitis. Discharge Diagnosis: Acute appendicitis. Procedure Performed: Laparoscopic appendectomy. Hospital Course: The patient is a 22-year-old gentleman, underwent a laparoscopic appendectomy yeste rd. Postoperatively, he is tolerating diet, ambulating, pain controlled with p.o. pain medications , afebrile. Therefore, the patient will be discharged to home. Disposition: Home. Condition: Stable. Discharge Instructions: Resume home medications and diet. Activity as tolerated. No heavy lifting. Remove outer dressing in a.m., shower. Keep wound clean and dry. Followup in my office. We will call for appointment. [place] 7.5 and Augmentin have called into the patient's pharmacy. LILLIANA/CLARENCE Voice ID: [id number] Report ID: [id number]
== END 2022-06-05 12:47 | disposition home or self-care (01) ==
LOC: ER 11:42 → ERHOLD 14:58 → 2ND 16:16
PROVIDERS: ADMIT Surgery; ATTEND Surgery
PROC: 0DTJ4ZZ Resection of Appendix, Percutaneous Endoscopic Approach (ICD-10-PCS; principal; 2022-06-04 16:15)
DX: K35.80 Unspecified acute appendicitis (principal)
CPT/HCPCS: 36415; 74177; 80053; 83690; 85025; 88304; 94010; 96361; 96374; 96375; 99285; G0378; J1170; J2250; J2405; J2543; J2704; J2710; J3010; J7030; J7120; J7799; Q9967

== ENCOUNTER 2023-01-21 19:28 | Emergency (ER) | payer SELFPAY ==
--- NOTE | 2023-01-21 21:36 | RAD REPORT ---
EXAM DESCRIPTION: CT - Head Brain Wo Cont - 01/21/2023 9:03 pm CLINICAL HISTORY: Headache COMPARISON: 2011 TECHNIQUE: Computed axial tomography of the head was obtained. IV contrast was not requested. All CT scans are performed using dose optimization technique as appropriate and may include automated exposure control or mA/KV adjustment according to patient size. FINDINGS: An intracranial bleed is not seen The ventricles are normal in caliber No significant hypodense areas within the brain visualized No extra-axial fluid collection is noted. Fluid within the sinuses/ mastoids is not seen IMPRESSION: No acute intracranial abnormality is seen If patient's symptoms persist MRI of the brain would be recommended
--- NOTE | 2023-01-21 21:37 | RAD REPORT ---
EXAM DESCRIPTION: RAD - Lumbar Spine 3 Views - 01/21/2023 9:15 pm CLINICAL HISTORY: Back pain FINDINGS: No fracture or dislocation is seen.
--- NOTE | 2023-01-21 22:53 | EDPHYS ---
Physician Documentation [facility] Name: Trey Christian Age: 22 yrs Sex: Male : 2000 Arrival Date: 01/21/2023 Time: 19:28 Bed IW1 Private MD: ED Physician Kierra Rhodes HPI: 01/21 20:20 This 22 yrs old Male presents to ER via Unassigned with complaints of Fall Injury, sp3 Headache, Wrist Pain, Back Pain. 20:20 22 yo m with no PMH presents with slip/fall injury at [employer] his place of employment sp3 injuring posterior head, right wrist and lower back. No LOC and pt is ambulatory and using his wrist. He states it hurts on movement. He states no incident report was made at work. He denies other pain or injury -- ROS otherwise negative.. Historical: - Allergies: 23:04 No Known Allergies; kl - Home Meds: 23:04 None [Active]; kl - PMHx: 23:04 Kidney stone; kl - Immunization history: Last tetanus immunization: unknown. ROS: 20:21 Constitutional: Negative for fever, chills, and weight loss, Eyes: Negative for injury, sp3 pain, redness, and discharge, ENT: Negative for injury, pain, and discharge, Neck: Negative for injury, pain, and swelling, Cardiovascular: Negative for chest pain, palpitations, and edema, Respiratory: Negative for shortness of breath, cough, wheezing, and pleuritic chest pain, Abdomen/GI: Negative for abdominal pain, nausea, vomiting, diarrhea, and constipation, : Negative for injury, bleeding, discharge, and swelling, Skin: Negative for injury, rash, and discoloration, Psych: Negative for depression, anxiety, suicide ideation, homicidal ideation, and hallucinations, Allergy/Immunology: Negative for hives, rash, and allergies, Endocrine: Negative for neck swelling, polydipsia, polyuria, polyphagia, and marked weight changes, Hematologic/Lymphatic: Negative for swollen nodes, abnormal bleeding, and unusual bruising, 20:21 Neuro: Positive for headache, Exam: 20:22 Constitutional: This is a well developed, well nourished patient who is awake, alert, sp3 and in no acute distress. Head/Face: Normocephalic, atraumatic. Eyes: Pupils equal round and reactive to light, extra-ocular motions intact. Lids and lashes normal. Conjunctiva and sclera are non-icteric and not injected. Cornea within normal limits. Periorbital areas with no swelling, redness, or edema. ENT: Nares patent. No nasal discharge, no septal abnormalities noted. External auditory canals are clear. Oropharynx with no redness, swelling, or masses, exudates, or evidence of obstruction, uvula midline. Mucous membranes moist. Neck: Trachea midline, no thyromegaly or masses palpated, and no cervical lymphadenopathy. Supple, full range of motion without nuchal rigidity, or vertebral point tenderness. No Meningismus. Chest/axilla: Normal chest wall appearance and motion. Nontender with no deformity. No lesions are appreciated. Cardiovascular: Regular rate and rhythm with a normal S1 and S2. No gallops, murmurs, or rubs. Normal PMI, no JVD. No pulse deficits. Respiratory: Lungs have equal breath sounds bilaterally, clear to auscultation and percussion. No rales, rhonchi or wheezes noted. No increased work of breathing, no retractions or nasal flaring. Abdomen/GI: Soft, non-tender, with normal bowel sounds. No distension or tympany. No guarding or rebound. No evidence of tenderness throughout. Skin: Warm, dry with normal turgor. Normal color with no rashes, no lesions, and no evidence of cellulitis. Neuro: Awake and alert, GCS 15, oriented to person, place, time, and situation. Cranial nerves II-XII grossly intact. Motor strength 5/5 in all extremities. Sensory grossly intact. Cerebellar exam normal. Normal gait. Psych: Awake, alert, with orientation to person, place and time. Behavior, mood, and affect are within normal limits. 20:22 Musculoskeletal/extremity: Pt ponce pain on wrist ROM right side but no clinical signs of fracture. Paraspinous pain bilateral lower back but no spinous process pain noted. . Vital Signs: 23:05 BP 136 / 80; Pulse 82; Resp 18; Temp 98; Pulse Ox 99% on R/A; kl Lenny Coma Score: 23:05 Eye Response: spontaneous(4). Motor Response: obeys commands(6). Verbal Response: kl oriented(5). Total: 15. Trauma Score (Adult): 23:05 Eye Response: spontaneous(1); Verbal Response: oriented(1); Motor Response: obeys kl commands(2); Systolic BP: > 89 mm Hg(4); Respiratory Rate: 10 to 29 per min(4); Lenny Score: 15; Trauma Score: 12 MDM: 20:19 Patient medically screened. sp3 20:23 Data reviewed: vital signs, nurses notes, radiologic studies. ED course: Will obtain CT sp3 head and LS spine xrays -- d/c home if negative on NSAIDs and muscle relaxants. Not suspecting major traumatic injury or other pathology. VSS.. 01/21 20:50 Order name: CT Head Brain wo Cont sp3 01/21 21:04 Order name: Head Brain Wo Cont EDMS 01/21 21:09 Order name: Lumbar Spine 3 Views EDMS Administered Medications: No medications were administered Disposition Summary: 01/21/23 22:52 Discharge Ordered Notes: Location: Home sp3 Condition: Stable sp3 Diagnosis - Closed head injury, right wrist sprain, lumbar contusion sp3 Followup: sp3 - With: Private Physician - When: Upon discharge from the Emergency Department - Reason: Continuance of care Discharge Instructions: - Discharge Summary Sheet sp3 - Head Injury, Adult sp3 Forms: - Work release form kl - Medication Reconciliation Form sp3 - Thank You Letter sp3 - Antibiotic Education sp3 - Prescription Opioid Use sp3 - Patient Portal Instructions sp3 - Leadership Thank You Letter sp3 Signatures: Dispatcher [employer] EDLubna Lofton RN RN kl Patel, Setul, MD MD sp3 Corrections: (The following items were deleted from the chart) 21:04 20:13 Spine Lumbar Wo Con+CT.RAD.BRZ ordered. EDMS EDMS 21:04 20:13 Head Brain W/ Wo Con+CT.RAD.BRZ ordered. EDMS EDMS 23:03 23:00 Lumbar Spine 3 Views+RAD.RAD.BRZ ordered. EDMS EDMS
--- NOTE | 2023-01-21 23:07 | ER ---
Nurse's Notes [facility] Name: Trye Christian Age: 22 yrs Sex: Male : 2000 Arrival Date: 01/21/2023 Time: 19:28 Bed IW1 Private MD: Diagnosis: Closed head injury, right wrist sprain, lumbar contusion Presentation: 01/21 20:15 Chief complaint: Patient states: I fell backwards at work in the cooler and hit my 1 head. My left side hurts the middle of my back and my right wrist. 20:15 Coronavirus screen: Client denies travel out of the [place] in the last 14 days. At this vc1 time, the client does not indicate any symptoms associated with coronavirus-19. Ebola Screen: Patient negative for fever greater than or equal to 101.5 degrees Fahrenheit, and additional compatible Ebola Virus Disease symptoms Patient denies exposure to infectious person. Patient denies travel to an Ebola-affected area in the 21 days before illness onset. No symptoms or risks identified at this time. Patient positive for the following Ebola Virus Disease associated symptoms:. Initial Sepsis Screen: Does the patient meet any 2 criteria? No. Patient's initial sepsis screen is negative. Does the patient have a suspected source of infection? No. Patient's initial sepsis screen is negative. Risk Assessment: Do you want to hurt yourself or someone else? Patient reports no desire to harm self or others. Onset of symptoms was January 21, 2023. 20:15 Method Of Arrival: Ambulatory vc1 20:15 Acuity: AMOR 4 vc1 Historical: - Allergies: 23:04 No Known Allergies; kl - Home Meds: 23:04 None [Active]; kl - PMHx: 23:04 Kidney stone; kl - Immunization history: Last tetanus immunization: unknown. Screenin:05 Abuse screen: Denies threats or abuse. Tuberculosis screening: No symptoms or risk kl factors identified. Primary Survey: 23:04 NO uncontrolled hemorrhage observed. A: The client is awake and alert. The airway is kl patent. Breathing/Chest: Spontaneous respiratory effort, equal unlabored respirations, breath sounds clear bilaterally, regular pattern, symmetrical chest rise and fall. Circulation: No external hemorrhage present. Regular and strong central pulse, skin warm/dry/normal color. Disability Pupils are equal, round, reactive to light and accommodation. Exposure/Environment:. Reassessment Alertness and Airway: Awake and alert. The airway is patent. Breathing: Spontaneous respiratory effort, equal unlabored respirations, breath sounds clear bilaterally, regular pattern with symmetrical chest rise and fall. Circulation: No external hemorrhage noted. Regular and strong central pulse, skin warm/dry/normal color. Disability: Pupils Pupils are equal, round, reactive to light and accomodation. Secondary Survey: 23:04 HEENT: No deficits noted. Gastrointestinal: No deficits noted. : No deficits noted. kl Musculoskeletal: Reports pain in right wrist and back of head. Assessment: 23:02 General: Appears in no apparent distress. Behavior is calm, cooperative. Pain:. kl 23:02 Pain: Complains of pain in right hand, back of head and back Pain currently is 2 out of kl 10 on a pain scale. Pain began 4 hours ago. Neuro: No deficits noted. EENT: No deficits noted. Cardiovascular: No deficits noted. Respiratory: No deficits noted. GI: No deficits noted. No signs and/or symptoms were reported involving the gastrointestinal system. : No deficits noted. No signs and/or symptoms were reported regarding the genitourinary system. Derm: No deficits noted. No signs and/or symptoms reported regarding the dermatologic system. Musculoskeletal: Reports pain in right wrist Pain is 2 out of 10 on a pain scale. Injury Description: Head injury sustained to back of head is closed, did not have loss of consciousness, was sustained 2-4 hours ago. Vital Signs: 23:05 BP 136 / 80; Pulse 82; Resp 18; Temp 98; Pulse Ox 99% on R/A; kl Lenny Coma Score: 23:05 Eye Response: spontaneous(4). Motor Response: obeys commands(6). Verbal Response: kl oriented(5). Total: 15. Trauma Score (Adult): 23:05 Eye Response: spontaneous(1); Verbal Response: oriented(1); Motor Response: obeys kl commands(2); Systolic BP: > 89 mm Hg(4); Respiratory Rate: 10 to 29 per min(4); Lenny Score: 15; Trauma Score: 12 ED Course: 19:31 Patient arrived in ED. jj6 20:01 Kierra Rhodes MD is Attending Physician. sp3 21:04 Head Brain Wo Cont In Process Unspecified. EDMS 21:17 Lumbar Spine 3 Views In Process Unspecified. EDMS 23:00 Patient did not have IV access during this emergency room visit. vc1 23:06 Patient has correct armband on for positive identification. kl 23:06 No provider procedures requiring assistance completed. Patient did not have IV access kl during this emergency room visit. Patient maintains SpO2 saturation greater than 95% on room air. 01/22 00:16 Triage completed. vc1 Administered Medications: No medications were administered Medication: 01/21 23:00 VIS not applicable for this client. vc1 Outcome: 22:52 Discharge ordered by . brooke 23:06 Discharged to home ambulatory, kl 23:06 Condition: stable 23:06 Patient's length of stay in the Emergency Department was greater than 2 hours. 23:06 Patient left the ED. kl 23:06 Discharge instructions given to patient, Instructed on discharge instructions, follow vc1 up and referral plans. Demonstrated understanding of instructions, follow-up care, Signatures: Dispatcher [employer] Lubna Veronica, RN RN Kierra James MD MD sp3 Светлана Danielsj6 Azucena Munoz RN RN vc1
[2023-01-22 00:16] VITALS: BP 136/80; TEMP 98; O2SAT 99
== END 2023-01-21 23:06 | disposition home or self-care (01) ==
LOC: ER 19:28
DX: S09.90XA Unspecified injury of head, initial encounter (principal); S63.501A Unspecified sprain of right wrist, initial encounter; S30.0XXA Contusion of lower back and pelvis, initial encounter
CPT/HCPCS: 70450; 72100; 99284

== ENCOUNTER 2023-08-30 17:22 | Emergency (ER) | payer SELFPAY ==
[2023-08-30 19:20] LABS: SARS-CoV-2 Antigen CONTROL BLUE LINE VIS/BG OK; SARS-CoV-2 Antigen Rapid Res Negative (Negative)
--- NOTE | 2023-08-30 21:04 | ER ---
Nurse's Notes [facility] Name: Trey Christian Age: 23 yrs Sex: Male : 2000 Arrival Date: 08/30/2023 Time: 17:22 Bed IW1 Private MD: Diagnosis: Cough;Acute pharyngitis, unspecified Presentation: 08/29 17:37 Chief complaint: Patient states: he started havingg flu-like symptoms approx 2 days ago ap3 with sore throat, cough and congestion. Coronavirus screen: Client presents with at least one sign or symptom that may indicate coronavirus-19. Ebola Screen: No symptoms or risks identified at this time. Initial Sepsis Screen: Does the patient meet any 2 criteria? No. Patient's initial sepsis screen is negative. Does the patient have a suspected source of infection? No. Patient's initial sepsis screen is negative. Risk Assessment: Do you want to hurt yourself or someone else? Patient reports no desire to harm self or others. Onset of symptoms was August 28, 2023. 17:37 Method Of Arrival: Ambulatory ap3 17:37 Acuity: AMOR 4 ap3 Triage Assessment: 17:39 General: Appears ill, Behavior is calm, cooperative, appropriate for age. Pain: ap3 Complains of pain in back. EENT: Reports pain when swallowing. Neuro: Level of Consciousness is awake, alert, obeys commands, Oriented to person, place, time, situation. Historical: - Allergies: 17:39 No Known Allergies; ap3 - Home Meds: 17:39 None [Active]; ap3 - PMHx: 17:39 Kidney stone; ap3 - Immunization history:: Client reports receiving the 2nd dose of the Covid vaccine. - Infectious Disease History:: Denies. - Social history:: Smoking status: unknown. Screenin:39 [facility] ED Fall Risk Assessment (Adult) History of falling in the last 3 months, ap3 including since admission No falls in past 3 months (0 pts) Confusion or Disorientation No (0 pts) Intoxicated or Sedated No (0 pts) Impaired Gait No (0 pts) Mobility Assist Device Used No (0 pt) Altered Elimination No (0 pt) Score/Fall Risk Level 0 - 2 = Low Risk Oriented to surroundings, Maintained a safe environment, Educated pt \T\ family on fall prevention, incl call for assistance when getting out of bed, Assessed \T\ reinforced patient's understanding of fall precautions, Provided non-skid footwear, Hourly rounding (assess needs \T\ fall precautionary measures) done, Used ambulatory aids as needed (educated on \T\ assisted with), Used gait belt as appropriate. Abuse screen: Denies threats or abuse. Nutritional screening: No deficits noted. Tuberculosis screening: No symptoms or risk factors identified. Vital Signs: 17:37 BP 123 / 80; Pulse 92; Resp 18; Temp 98.1; Pulse Ox 100% ; Weight 86.18 kg; Height 5 ap3 ft. 9 in. ; 21:09 BP 126 / 81; Pulse 90; Resp 16 S; Temp 98.3(TE); Pulse Ox 99% on R/A; jw7 17:37 Body Mass Index 28.06 (86.18 kg, 175.26 cm) ap3 ED Course: 17:25 Patient arrived in ED. im 17:27 Fabian Bliss PA is PHCP. cp 17:27 Eddie Navarrete MD is Attending Physician. cp 17:39 Triage completed. ap3 17:39 Arm band placed on right wrist. ap3 21:08 No provider procedures requiring assistance completed. Patient did not have IV access jw7 during this emergency room visit. 21:09 Patient has correct armband on for positive identification. Provided Education on: jw7 Medication usage. Administered Medications: No medications were administered Medication: 21:09 VIS not applicable for this client. jw7 Outcome: 21:03 Discharge ordered by . cp 21:08 Discharged to home ambulatory, jw7 21:08 Condition: stable 21:08 Discharge instructions given to patient, Instructed on discharge instructions, follow up and referral plans. medication usage, Demonstrated understanding of instructions, follow-up care, medications, Prescriptions given X 2, 21:10 Patient left the ED. jw7 Signatures: Fabian Bliss PA PA cp Prokisch, Amanda RN RN ap3 Jovita Bateman RN RN jw7 Rere Valdez im
--- NOTE | 2023-08-30 21:04 | EDPHYS ---
Physician Documentation [facility] Name: Trey Christian Age: 23 yrs Sex: Male : 2000 Arrival Date: 08/30/2023 Time: 17:22 Bed IW1 Private MD: ED Physician Eddie Navarrete HPI: 08/29 19:00 This 23 yrs old Male presents to ER via Ambulatory with complaints of Flu Symptoms. cp 19:00 The patient or guardian reports cough, sore throat. cp 19:00 Onset: The symptoms/episode began/occurred 2 day(s) ago. Associated signs and symptoms: cp Pertinent positives: body aches, Pertinent negatives: diarrhea, fever, vomiting. Historical: - Allergies: 17:39 No Known Allergies; ap3 - Home Meds: 17:39 None [Active]; ap3 - PMHx: 17:39 Kidney stone; ap3 - Immunization history:: Client reports receiving the 2nd dose of the Covid vaccine. - Infectious Disease History:: Denies. - Social history:: Smoking status: unknown. ROS: 19:05 Constitutional: Positive for body aches, Negative for fever, poor PO intake, cp 19:05 Eyes: Negative for injury, pain, redness, and discharge, cp 19:05 ENT: Positive for sore throat, Negative for drainage from ear(s), ear pain, difficulty swallowing, difficulty handling secretions, 19:05 Respiratory: Positive for cough, 19:05 Abdomen/GI: Negative for abdominal pain, vomiting, diarrhea, constipation, 19:05 Neuro: Negative for altered mental status, headache, 19:05 All other systems are negative, Exam: 19:10 Constitutional: The patient appears in no acute distress, alert, awake, non-toxic, well cp developed, well nourished, 19:10 Head/Face: Normocephalic, atraumatic. cp 19:10 Eyes: Periorbital structures: appear normal, Conjunctiva: normal, no exudate, no injection, Sclera: no appreciated abnormality, Lids and lashes: appear normal, bilaterally, 19:10 ENT: External ear(s): are unremarkable, Ear canal(s): are normal, clear, TM's: dullness, bilaterally, Nose: is normal, Mouth: Lips: moist, Oral mucosa: pink and intact, moist, Posterior pharynx: Airway: no evidence of obstruction, patent, swelling, is not appreciated, erythema, is not appreciated, exudate, is not appreciated, 19:10 Neck: ROM/movement: Meningeal signs: are not present, Lymph nodes: no appreciated lymphadenopathy, 19:10 Chest/axilla: Inspection: normal, 19:10 Cardiovascular: Rate: normal, Rhythm: regular, 19:10 Respiratory: the patient does not display signs of respiratory distress, Respirations: normal, no use of accessory muscles, no retractions, labored breathing, is not present, Breath sounds: stridor, is not appreciated, + upper airway congestion. wheezing: is not appreciated, 19:10 Abdomen/GI: Exam negative for discomfort, distension, guarding, Inspection: abdomen appears normal, Vital Signs: 17:37 BP 123 / 80; Pulse 92; Resp 18; Temp 98.1; Pulse Ox 100% ; Weight 86.18 kg; Height 5 ap3 ft. 9 in. ; 21:09 BP 126 / 81; Pulse 90; Resp 16 S; Temp 98.3(TE); Pulse Ox 99% on R/A; jw7 17:37 Body Mass Index 28.06 (86.18 kg, 175.26 cm) ap3 MDM: 17:40 Patient medically screened. cp 21:02 Data reviewed: vital signs, nurses notes, lab test result(s), and as a result, I will cp discharge patient. 21:02 Differential diagnosis: bronchitis, flu, URI, strep, COVID, influenza. Counseling: I cp had a detailed discussion with the patient and/or guardian regarding the historical points, exam findings, and any diagnostic results supporting the discharge/admit diagnosis, lab results, to return to the emergency department if symptoms worsen or persist or if there are any questions or concerns that arise at home. 08/29 17:37 Order name: SARS RAPID ap3 08/29 17:37 Order name: Flu ap3 08/29 17:37 Order name: Strep ap3 08/29 18:45 Order name: Throat Culture EDMS Administered Medications: No medications were administered Disposition Summary: 08/30/23 21:03 Discharge Ordered Notes: Location: Home cp Problem: new cp Symptoms: have improved cp Condition: Stable cp Diagnosis - Cough cp - Acute pharyngitis, unspecified cp Followup: cp - With: Private Physician - When: 2 - 3 days - Reason: Worsening of condition Discharge Instructions: - Discharge Summary Sheet cp - Pharyngitis cp - Sore Throat cp - Cough, Adult cp - Form - Excuse from Work, School, or Physical Activity cp Forms: - Medication Reconciliation Form cp - Antibiotic Education cp - Prescription Opioid Use cp - Patient Portal Instructions cp - Leadership Thank You Letter cp Prescriptions: - Bromfed DM 2-30-10 mg/5 mL Oral syrup - administer 10 milliliter ORAL route every 6 hours as needed for cold symptoms; cp 240 milliliter; Refills: 0, Product Selection Permitted - Ibuprofen 800 mg Oral Tablet - take 1 tablet ORAL route every 8 hours As needed take with food; 30 tablet; cp Refills: 0, Product Selection Permitted Addendum: 09/01/2023 05:47 I was immediately available for consultation during this patient's visit. I did not e c2 personally see the patient or discuss the patient with the CHRISTINA. . Signatures: Dispatcher [employer] EDMS Fabian Bliss PA PA cp Prokisch, Amanda, RN RN ap3 Eddie Navarrete MD MD ec2 Corrections: (The following items were deleted from the chart) 08/29 17:38 17:38 SARS-COV-2 Antigen Rapid+I.LAB.BRZ ordered. EDMS EDMS 17:38 17:38 Influenza Screen (A \T\ B)+BA.LAB.BRZ ordered. EDMS EDMS 17:38 17:38 Group A Streptococcus Rapid Sc+BA.LAB.BRZ ordered. EDMS EDMS
[2023-08-30 22:36] VITALS: BP 126/81; TEMP 98.3; O2SAT 99
== END 2023-08-30 21:10 | disposition home or self-care (01) ==
LOC: ER 17:22
DX: R05.9 Cough, unspecified (principal); J02.9 Acute pharyngitis, unspecified; Z11.52 Encounter for screening for COVID-19
CPT/HCPCS: 36415; 87070; 87081; 87804; 87811; 99283